=== PATIENT | female | born 1950 | race Caucasian/White ===

== ENCOUNTER 2020-01-30 16:52 | Emergency (ER) | payer OTHER ==
[~2020-01-30] VITALS: Ht 167.6 cm; Wt 63.5 kg
--- NOTE | 2020-01-30 17:47 | NUR ---
Present when pt arrived code 3 cpr in progress. Stayed until spouse arrived and provided bereavement senior counsel. [facility]urelio[facility] selected for arrangements.
== END 2020-01-30 19:03 ==
LOC: EDBD 16:52 → ER 16:52
DX: I49.01 Ventricular fibrillation (principal); I46.2 Cardiac arrest due to underlying cardiac condition
CPT/HCPCS: 92950; 99285-25